=== PATIENT | female | born 1980 | race American Indian/Alaskan Native ===

== ENCOUNTER 2016-11-05 16:01 | Emergency (ER) | payer SELFPAY ==
--- NOTE | 2016-11-05 16:55 | Emergency Department Report ---
Chief Complaint: Nausea/Vomiting/Diarrhea Stated Complaint: NAUSEA/VOMITING Time Seen by Provider: 11/05/16 16:50 - HPI History of Present Illness: PT c/o n/v x a few days. PT states her lmp was 5-12-17. PT states she is not sure if she is . - ROS Review of Systems: + breast tenderness + n/v - vaginal bleeding - Exam Physical Exam: pt looks well, non toxic. abd soft and non tender at this time. MSE screening note: Focused history and physical exam performed. Due to findings the following was ordered: labs ED Disposition for MSE Condition: Stable
[2016-11-05] MEDS ORDERED: ZOFRAN ODT PO ONE (19:14)
[2016-11-05 19:15] LABS: Bacteria,Urine 1+ /HPF (Negative); Bilirubin,Urine NEG (Negative); Blood,Urine LG (Negative); Ketones,Urine TR mg/dL (Negative); Leukocyte Esterase,Urine NEG (Negative); Mucus,Urine 1+ /HPF; Nitrite,Urine NEG (Negative); Protein,Urine <15 mg/dL mg/dL (Negative); Urobilinogen,Urine < 2.0 mg/dL (<2.0)
--- NOTE | 2016-11-05 19:15 | Emergency Department Report ---
ED N/V/D HPI - General Chief complaint: Nausea/Vomiting/Diarrhea Stated complaint: NAUSEA/VOMITING Time Seen by Provider: 11/05/16 16:50 Source: patient, family Mode of arrival: Ambulatory Limitations: No Limitations - History of Present Illness MD complaint: nausea, vomiting, other (vaginal spotting times one. She thinks she is on her period) Onset/Timin -: days(s) Description of Vomiting: food contents Associated Abdominal Pain: No Pain Scale: 0 Context: possible food poisoning Associated Symptoms: loss of appetite, nausea/vomiting, other (vaginal spotting times one). denies: myalgias, chest pain, cough, diaphoresis, fever/chills, headaches, malaise, rash, dysuria, shortness of breath, syncope, weakness - Related Data Previous Rx's Medication Instructions Recorded Last Taken Type Doxylamine/Pyridoxine HCl 1 each PO BID PRN #12 tablet. 11/05/16 Unknown Rx [Diclandry Dr 10-10 mg Tablet] Vit No.130/Iron/FA 1 each PO QDAY #30 tablet 11/05/16 Unknown Rx [ Tablet] metroNIDAZOLE 0.75% [Vandazole 1 applicator VG QHS #1 tube 11/05/16 Unknown Rx 0.75% VAGINAL] Allergies Allergy/AdvReac Type Severity Reaction Status Date / Time No Known Allergies Allergy Unverified 11/05/16 19:21 ED Review of Systems ROS: Stated complaint: NAUSEA/VOMITING Other details as noted in HPI Comment: All other systems reviewed and negative Constitutional: denies: chills, fever ENT: denies: throat pain Respiratory: no symptoms reported Cardiovascular: denies: chest pain, palpitations, edema, syncope Gastrointestinal: nausea, vomiting. denies: abdominal pain, diarrhea, constipation, hematemesis, melena, hematochezia Genitourinary: other (vaginal spotting times one). denies: urgency, dysuria, frequency, hematuria, discharge, abnormal menses, dyspareunia Skin: denies: rash Neurological: denies: headache, weakness, numbness, paresthesias, confusion, abnormal gait, vertigo ED Past Medical Hx - Past Medical History Previous Medical History?: No - Surgical History Past Surgical History?: Yes Additional Surgical History: D&C - Family History Family history: hypertension - Social History Smoking Status: Current Every Day Smoker Substance Use Type: Alcohol, Marijuana - Medications Home Medications: Home Medications Medication Instructions Recorded Confirmed Last Taken Type Doxylamine/Pyridoxine HCl 1 each PO BID PRN #12 tablet. 11/05/16 Unknown Rx [Kaleigh Dangelo 10-10 mg Tablet] Vit No.130/Iron/FA 1 each PO QDAY #30 tablet 11/05/16 Unknown Rx [ Tablet] metroNIDAZOLE 0.75% [Vandazole 1 applicator VG QHS #1 tube 11/05/16 Unknown Rx 0.75% VAGINAL] ED Physical Exam - General Limitations: No Limitations General appearance: alert, in no apparent distress - Head Head exam: Present: atraumatic, normocephalic, normal inspection - Eye Eye exam: Present: normal appearance, PERRL, EOMI Pupils: Present: normal accommodation - ENT ENT exam: Present: normal exam, normal orophraynx, mucous membranes moist, TM's normal bilaterally, normal external ear exam - Neck Neck exam: Present: normal inspection, full ROM. Absent: tenderness, meningismus, lymphadenopathy - Respiratory Respiratory exam: Present: normal lung sounds bilaterally. Absent: respiratory distress, chest wall tenderness - Cardiovascular Cardiovascular Exam: Present: regular rate, normal rhythm, normal heart sounds - GI/Abdominal GI/Abdominal exam: Present: soft, normal bowel sounds. Absent: distended, tenderness, guarding, rebound, rigid, organomegaly, mass, bruit, pulsatile mass - External exam: Present: normal external exam. Absent: erythema, swelling, lesions, lacerations, ecchymosis, bleeding Speculum exam: Present: normal speculum exam, vaginal discharge, cervical discharge. Absent: erythema, vaginal bleeding, foreign body, tissue, laceration Bi-manual exam: Present: normal bi-manual exam, uterine enlargement. Absent: cervical motion tendernes, adnexal tenderness, adnexal mass, uterine tenderness - Expanded Exam Expanded Female exam: Absent: vaginal laceration, tissue present in vagina, herpetic lesions, vulvar erythema, vulvar tenderness External exam: Present: normal Amniotic fluid: Present: none Speculum exam: Present: cervical OS closed, vaginal discharge. Absent: vaginal bleeding - Extremities Exam Extremities exam: Present: normal inspection, full ROM, normal capillary refill. Absent: tenderness, pedal edema, joint swelling, calf tenderness - Back Exam Back exam: Present: normal inspection, full ROM. Absent: tenderness, CVA tenderness (R), CVA tenderness (L), muscle spasm, paraspinal tenderness, vertebral tenderness, rash noted - Neurological Exam Neurological exam: Present: alert, oriented X3, normal gait, reflexes normal. Absent: motor sensory deficit - Psychiatric Psychiatric exam: Present: normal affect, normal mood - Skin Skin exam: Present: warm, dry, intact, normal color. Absent: rash ED Course Vital Signs 11/05/16 16:49 Temperature 98.4 F Pulse Rate 81 Respiratory 16 Rate Blood Pressure 137/73 O2 Sat by Pulse 100 Oximetry - Reevaluation(s) Reevaluation #1: 11/05/16 22:28 Patient given Zofran 4 mg ODT and tolerated 4 cups of apple juice without any vomiting. 11/05/16 22:30 ED Medical Decision Making - Lab Data Result diagrams: 11/05/16 19:17 11/05/16 19:17 Lab Results 11/05/16 11/05/16 11/05/16 Range/Units 19:02 19:17 19:17 WBC 6.9 (4.5-11.0) K/mm3 RBC 4.52 (3.65-5.03) M/mm3 Hgb 12.9 (10.1-14.3) gm/dl Hct 39.7 (30.3-42.9) % MCV 88 (79-97) fl MCH 29 (28-32) pg MCHC 33 (30-34) % RDW 13.7 (13.2-15.2) % Plt Count 245 (140-440) K/mm3 Lymph % (Auto) 48.8 H (13.4-35.0) % Drew % (Auto) 7.3 (0.0-7.3) % Eos % (Auto) 1.7 (0.0-4.3) % Baso % (Auto) 0.4 (0.0-1.8) % Lymph # 3.4 (1.2-5.4) K/mm3 Drew # 0.5 (0.0-0.8) K/mm3 Eos # 0.1 (0.0-0.4) K/mm3 Baso # 0.0 (0.0-0.1) K/mm3 Seg Neutrophils % 41.8 (40.0-70.0) % Seg Neutrophils # 2.9 (1.8-7.7) K/mm3 Sodium 141 (137-145) mmol/L Potassium 4.2 (3.6-5.0) mmol/L Chloride 102.6 (98-107) mmol/L Carbon Dioxide 26 (22-30) mmol/L Anion Gap 17 mmol/L BUN 8 (7-17) mg/dL Creatinine 0.6 L (0.7-1.2) mg/dL Estimated GFR > 60 ml/min BUN/Creatinine Ratio 13.33 % Glucose 85 (65-100) mg/dL Calcium 8.9 (8.4-10.2) mg/dL Total Bilirubin 0.20 (0.1-1.2) mg/dL AST 19 (5-40) units/L ALT 18 (7-56) units/L Alkaline Phosphatase 53 (35-129) units/L Total Protein 7.7 (6.3-8.2) g/dL Albumin 4.1 (3.9-5) g/dL Albumin/Globulin Ratio 1.1 % Lipase 38 (13-60) units/L HCG, Quant (0-4) mIU/mL Urine Color Yellow (Yellow) Urine Turbidity Slightly-cloudy (Clear) Urine pH 6.0 (5.0-7.0) Ur Specific [place] 1.021 (1.003-1.030) Urine Protein <15 mg/dl (Negative) mg/dL Urine Glucose (UA) Neg (Negative) mg/dL Urine Ketones Tr (Negative) mg/dL Urine Blood Lg (Negative) Urine Nitrite Neg (Negative) Urine Bilirubin Neg (Negative) Urine Urobilinogen < 2.0 (<2.0) mg/dL Ur Leukocyte Esterase Neg (Negative) Urine WBC (Auto) 1.0 (0.0-6.0) /HPF Urine RBC (Auto) 18.0 (0.0-6.0) /HPF U Epithel Cells (Auto) 14.0 H (0-13.0) /HPF Urine Bacteria (Auto) 1+ (Negative) /HPF Urine Mucus 1+ /HPF 06/12/17 Range/Units 19:17 WBC (4.5-11.0) K/mm3 RBC (3.65-5.03) M/mm3 Hgb (10.1-14.3) gm/dl Hct (30.3-42.9) % MCV (79-97) fl MCH (28-32) pg MCHC (30-34) % RDW (13.2-15.2) % Plt Count (140-440) K/mm3 Lymph % (Auto) (13.4-35.0) % Drew % (Auto) (0.0-7.3) % Eos % (Auto) (0.0-4.3) % Baso % (Auto) (0.0-1.8) % Lymph # (1.2-5.4) K/mm3 Drew # (0.0-0.8) K/mm3 Eos # (0.0-0.4) K/mm3 Baso # (0.0-0.1) K/mm3 Seg Neutrophils % (40.0-70.0) % Seg Neutrophils # (1.8-7.7) K/mm3 Sodium (137-145) mmol/L Potassium (3.6-5.0) mmol/L Chloride (98-107) mmol/L Carbon Dioxide (22-30) mmol/L Anion Gap mmol/L BUN (7-17) mg/dL Creatinine (0.7-1.2) mg/dL Estimated GFR ml/min BUN/Creatinine Ratio % Glucose (65-100) mg/dL Calcium (8.4-10.2) mg/dL Total Bilirubin (0.1-1.2) mg/dL AST (5-40) units/L ALT (7-56) units/L Alkaline Phosphatase (35-129) units/L Total Protein (6.3-8.2) g/dL Albumin (3.9-5) g/dL Albumin/Globulin Ratio % Lipase (13-60) units/L HCG, Quant 71.84 H (0-4) mIU/mL Urine Color (Yellow) Urine Turbidity (Clear) Urine pH (5.0-7.0) Ur Specific [place] (1.003-1.030) Urine Protein (Negative) mg/dL Urine Glucose (UA) (Negative) mg/dL Urine Ketones (Negative) mg/dL Urine Blood (Negative) Urine Nitrite (Negative) Urine Bilirubin (Negative) Urine Urobilinogen (<2.0) mg/dL Ur Leukocyte Esterase (Negative) Urine WBC (Auto) (0.0-6.0) /HPF Urine RBC (Auto) (0.0-6.0) /HPF U Epithel Cells (Auto) (0-13.0) /HPF Urine Bacteria (Auto) (Negative) /HPF Urine Mucus /HPF Wet prep revealed greater than 20%, negative Trichomonas and negative E PH at pending Urinalysis is contaminated with epithelial, 1+ bacteria but no leukocyte esterase and negative nitrite. Trace ketone. Large amount of blood. She is not having any urinary symptoms or abdominal or back pain. Urine culture sent - Radiology Data Radiology results: report reviewed Treatment fashion all and pelvic ultrasound revealed fluid in the right left ovary. The gestational sac not identified intrauterine or elsewhere possibility of ectopic is not excluded. The patient can be further assessed with serial quantitative beta hCG and repeat ultrasound if indicated. - Medical Decision Making ED course:Patient here for nausea and vomiting and she was found to be . Her quantitative hCG. She was talented emergency room for cocktail. She tolerated well without any vomiting . 4mg of Zofran ODT given. Patient reported that she had vaginal spotting times one and she says she felt suicidal. Pelvic exam done and wet prep showed that patient positive for clue cells greater than 20% and negative for Trichomonas and yeast. Gonorrhea and chlamydia tests pending. Urinalysis shows large amount of blood but no nitrites and leukocyte Estrace and urine contaminated. Patient has no active vaginal bleeding. Urine cultures pending. I Discussed lab results the patient along with tests positive which she did not know and ultrasound results. In screen is pending. Quantitative hCG shows patient at approximately 3-4 weeks and patient had her last menstrual period 10/05/2016. I discussed the patient develop recurrent vitamin and she needs to increase her fluid intake. She does not have any nausea and has not vomited at present. Patient referred to [facility] and I did discuss with her that she needs to return to the emergency room in 48 hours for repeat hormone tests and possible ultrasound. Patient also has bacterial vaginosis so She'll be placed on suppository daily at bedtime. Is discharged home with family with prescription for metro gel supp, PNV and diclegis. Critical care attestation.: If time is entered above; I have spent that time in minutes in the direct care of this critically ill patient, excluding procedure time. ED Disposition Clinical Impression: Threatened miscarriage, Vaginal spotting, Bacterial vaginosis, Nausea and vomiting in Disposition: DC-01 TO HOME OR SELFCARE Is pt being admited?: No Does the pt Need Aspirin: No Condition: Stable Instructions: Bacterial Vaginosis (ED), Acute Nausea and Vomiting (ED), Threatened Miscarriage (ED) Additional Instructions: These return to the emergency room on 11/07/2016 for repeat test and possible ultrasound Follow-up with [facility] doctor. vitamin as prescribed Diclegis for nausea MetroGel for bacterial vaginosis Prescriptions: metroNIDAZOLE 0.75% [Vandazole 0.75% VAGINAL] 1 applicator VG QHS #1 tube Doxylamine/Pyridoxine HCl [Kaleigh Dangelo 10-10 mg Tablet] 1 each PO BID PRN #12 tablet. PRN Reason: Nausea And Vomiting Vit No.130/Iron/FA [ Tablet] 1 each PO QDAY #30 tablet Referrals: SUSIE GALLAGHER MD [Staff Physician] - 11/06/16 Return,ED [Other] - 11/07/16 (Return to the emergency room on 11/07/2016 for repeat blood tests and possible ultrasound.) Forms: STI Treatment and Prevention, Accompanied Note, Work/School Release Form (ED)
[2016-11-05 19:33] LABS: Basophils % (Auto) 0.4 % (0.0-1.8); Eosinophils % (Auto) 1.7 % (0.0-4.3); Hematocrit 39.7 % (30.3-42.9); Hemoglobin 12.9 gm/dl (10.1-14.3); Mean Corpuscular HGB Conc 33 % (30-34); Mean Corpuscular Hemoglobin 29 pg (28-32); Mean Corpuscular Volume 88 fl (79-97); Platelet Count 245 K/mm3 (140-440); Red Blood Count 4.52 M/mm3 (3.65-5.03); Red Cell Distribution Width 13.7 % (13.2-15.2); White Blood Count 6.9 K/mm3 (4.5-11.0)
[2016-11-05 19:43] LABS: Alanine Aminotransferase 18 units/L (7-56); Albumin 4.1 g/dL (3.9-5); Albumin/Globulin Ratio 1.1 %; Alkaline Phosphatase 53 units/L (35-129); Anion Gap 17 mmol/L; BUN/Creatinine Ratio 13.33; Blood Urea Nitrogen 8 mg/dL (7-17); Calcium 8.9 mg/dL (8.4-10.2); Carbon Dioxide 26 mmol/L (22-30); Chloride 102.6 mmol/L (98-107); Glucose 85 mg/dL (65-100); Lipase 38 units/L (13-60); Potassium 4.2 mmol/L (3.6-5.0); Sodium 141 mmol/L (137-145); Total Protein 7.7 g/dL (6.3-8.2)
--- NOTE | 2016-11-05 21:57 | Ultrasound Report ---
FINAL REPORT EXAM: US OB \T\lt; = 14 WEEKS FETUS HISTORY: with spotting TECHNIQUE: Transabdominal pelvic ultrasound was performed in multiple grayscale sonographic images were obtained of the uterus and adnexa. PRIORS: Endovaginal ultrasound 11/05/2016 FINDINGS: Uterus measures approximately 0.4 x 4.2 x 5.4 centimeters. Gestational sac is not identified in the uterus or elsewhere. Ovaries were not identified during the exam. IMPRESSION: 1. Nonvisualization of ovaries. 2. Gestational sac is not identified in the uterus or elsewhere in the images provided. Possibility ectopic is not excluded given the history provided. The patient can be further assessed with serial quantitative beta HCG and repeat ultrasound if indicated. 3. Please refer to report from endovaginal ultrasound from 11/05/2016 for additional information.
--- NOTE | 2016-11-05 21:57 | Ultrasound Report ---
FINAL REPORT EXAM: US OB TRANSVAGINAL HISTORY: with spotting TECHNIQUE: Endovaginal ultrasound was performed. Multiple grayscale sonographic images were obtained of the uterus and adnexa PRIORS: Transabdominal pelvic ultrasound 11/05/2016 FINDINGS: Uterus measures approximately 7 x 4.9 x 5.2 centimeters with endometrial stripe thickness of 12 millimeters. A gestational sac is not identified with certainty in the uterus, or elsewhere. No free fluid is seen in the pelvis. Right and left ovary measure approximately 3 x 1.7 x 2.4 centimeters and 3.2 x 1.8 x 2.7 centimeters, respectively. There is a heterogeneous focus in the left ovary which may represent corpus luteum. IMPRESSION: 1. A gestational sac is not identified in the uterus, or elsewhere. Possibility of ectopic is not excluded. The patient can be further assessed with serial quantitative beta HCG and repeat ultrasound if indicated.
[2016-11-05 22:58] VITALS: BP 119/79
== END 2016-11-05 22:58 | disposition home or self-care (01) ==
LOC: ED 16:01
DX: O20.0 Threatened abortion (principal); O26.851 Spotting complicating pregnancy, first trimester; R11.2 Nausea with vomiting, unspecified; N76.0 Acute vaginitis; F17.200 Nicotine dependence, unspecified, uncomplicated; F12.10 Cannabis abuse, uncomplicated; Z3A.01 Less than 8 weeks gestation of pregnancy
CPT/HCPCS: 36415; 76801; 76817; 80053; 81001; 83690; 84702; 85025; 86850; 86900; 86901; 87086; 87210; 87591; Q0162

== ENCOUNTER 2016-11-07 19:24 | Emergency (ER) | payer SELFPAY ==
[2016-11-07 20:32] VITALS: BP 141/83
[2016-11-07 20:34] LABS: Basophils % (Auto) 0.6 % (0.0-1.8); Eosinophils % (Auto) 1.3 % (0.0-4.3); Hematocrit 41.1 % (30.3-42.9); Hemoglobin 13.3 gm/dl (10.1-14.3); Mean Corpuscular HGB Conc 32 % (30-34); Mean Corpuscular Hemoglobin 29 pg (28-32); Mean Corpuscular Volume 88 fl (79-97); Platelet Count 251 K/mm3 (140-440); Red Blood Count 4.66 M/mm3 (3.65-5.03); Red Cell Distribution Width 13.5 % (13.2-15.2); White Blood Count 6.7 K/mm3 (4.5-11.0)
[2016-11-07 21:00] LABS: Anion Gap 18 mmol/L; BUN/Creatinine Ratio 13.33; Blood Urea Nitrogen 8 mg/dL (7-17); Calcium 8.9 mg/dL (8.4-10.2); Carbon Dioxide 21 mmol/L (22-30); Glucose 87 mg/dL (65-100); Potassium 4.2 mmol/L (3.6-5.0); Sodium 137 mmol/L (137-145)
== END 2016-11-07 22:30 | disposition left against medical advice (07) ==
LOC: ED 19:24
DX: Z00.00 Encounter for general adult medical examination without abnormal findings (principal); Z53.21 Procedure and treatment not carried out due to patient leaving prior to being seen by health care provider
CPT/HCPCS: 36415; 80048; 84702; 84703; 85025